=== PATIENT | male | born 1995 | race American Indian/Alaskan Native ===

== ENCOUNTER 2017-07-14 16:59 | Emergency (ER) | payer SELFPAY ==
[2017-07-14] MEDS ORDERED: MOTRIN PO ONE (17:32)
== END 2017-07-14 23:20 | disposition left against medical advice (07) ==
LOC: ED 16:59
DX: M79.673 Pain in unspecified foot (principal); Z53.21 Procedure and treatment not carried out due to patient leaving prior to being seen by health care provider